=== PATIENT | female | born 1935 | race Caucasian/White ===

== ENCOUNTER 2019-12-27 23:18 | Emergency (ER) | payer MEDICARE, OTHER ==
[~2019-12-27] VITALS: Ht 160 cm; Wt 47.6 kg
[2019-12-28] MEDS ORDERED: Norco 5-325 Ta1 EACH PO (00:35)
== END 2019-12-28 02:20 | disposition home or self-care (01) ==
LOC: ER 23:18
DX: S52.532A Colles' fracture of left radius, initial encounter for closed fracture (principal); S52.602A Unspecified fracture of lower end of left ulna, initial encounter for closed fracture; S61.213A Laceration without foreign body of left middle finger without damage to nail, initial encounter; J44.9 Chronic obstructive pulmonary disease, unspecified; Z88.2 Allergy status to sulfonamides; Z87.891 Personal history of nicotine dependence; W18.30XA Fall on same level, unspecified, initial encounter; Y93.K1 Activity, walking an animal
CPT/HCPCS: 12001; 25605; 73090; 76000; 96374-59; 96375-59; 99152; 99284-25; A9270; A9270-GY; J2405; J2704; J3010; J7030